=== PATIENT | female | born 1985 | race Caucasian/White ===

== ENCOUNTER 2024-12-08 05:26 | Emergency (ER) | payer BC, SELFPAY ==
[2024-12-08 05:49] VITALS: BP 133/86; PULSE 96; RESP 18; TEMP 36.4; O2SAT 98
[2024-12-08 05:56] VITALS: BP 128/82; BMI 40.9
--- OUTSIDE RECORDS SUMMARY | 2024-12-08 05:56 | XMS_ITS | Patient Health Record ---
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 Name Role Phone Julisa Samuel Primary Care Provider ALLERGIES Allergen (clinical drug ingredient) Drug/Non Drug Allergy documented on EMR Reaction Allergy Type Onset Date Status Sulfates sulfates (uncoded) hives Allergy A ctive RESULTS Component Value Reference Range Notes URINALYSIS Reviewed date:05/07/2024 12:46:29 PM Interpretation: Performing Lab: Notes/Report: Note Original Ordering Provider: JULISA SAMUEL PA-C [employer], a member of [address] [address] [employer] - Kelsey Huerta MD GLUCOSE, (UA) NEGATIVE NEGATIVE mg/dL BILIRUBIN, URINE NEGATIVE NEGATIVE KETONE, URINE NEGATIVE NEGATIVE mg/dL SPECIFIC GRAVITY, URINE 1.018 1.003-1.030 BLOOD, URINE NEGATIVE NEGATIVE PH, URINE 5.5 5.0-8.0 PROTEIN, URINE NEGATIVE <= TRACE mg/dl UROBILINOGEN, URINE 0.2 0.2-1.0 E.U./dL NITRITE, URINE NEGATIVE NEGATIVE LEUKOCYTE ESTERASE, URINE NEGATIVE NEGATIVE Note Original Ordering Provider: JULISA SAMUEL PA-C [employer], a member of [address] [address] [employer] - Kelsey Huerta MD GLYCOHEMOGLOBIN PROFILE Reviewed date:05/08/2024 01:27:17 PM Interpretation: Performing Lab: Notes/Report: GLYCATED HEMOGLOBIN A1C 5.2 <6.5 % ESTIMATED AVERAGE GLUCOSE 103 COMPREHENSIVE METABOLIC PANE L Reviewed date:05/07/2024 12:46:03 PM Interpretation: Performing Lab: Notes/Report: Note Original Orderi ng Provider: JULISA SAMUEL PA-C GLUCOSE 87 70-100 mg/dL Reference range applicable to fasting specimens only BUN 11 5-25 mg/dL CREAT 0.83 0.5-1.1 mg/dL GLOMERULAR FILTRATION RATE 92 >60 This eGFR result was calculated using the CKD-EPI 2020 Creatinine Equation SODIUM 138 135-145 mEq/L POTASSIUM 4.4 3.5-5.5 mmol/L CHLORIDE 107 96-110 mmol/L CO2 24 21-32 mmol/L ANION GAP 7 3-11 CALCIUM 9.6 8.5-10.5 mg/dL TOTAL PROTEIN 7.1 6.0-8.0 G/dL ALBUMIN 3.8 3.2-5.0 G/dL BILI,TOTAL 0.4 0.0-1.4 mg/dL SGOT 23 10-42 U/L SGPT 44 10-60 U/L ALK PHOS 63 42-121 U/L CBC WITH AUTO DIFF Reviewed date:05/07/2024 12:47:14 PM Interpretation: Performing Lab: Notes/Report: WBC 8.2 4.8-10.8 x10-3/uL RBC 4.5 3.8-4.8 x10-6/uL HEMOGLOBIN 13.3 11.5-16.0 g/dL HEMATOCRIT 39.4 35-47 % MCV 87.8 79-98 fL MCH 29.6 27-32 pg MCHC 33.8 32-37 g/dL RDW 11.9 11-15 % PLT COUNT 309 130-400 x10-3/uL MEAN PLATELET VOLUME 12.2 7-11 fL NRBC % AUTO 0.0 <1 % NEUT % 54.6 LYMPH % 33.2 MONO % 7.3 EOS % 4.3 BASO % 0.4 IMMATURE GRANULOCYTES % 0.2 NRBC # AUTO 0.00 <0.1 x10-3/uL ABSOLUTE NEUT 4.47 1.5-7.0 x10-3/uL LYMPH # 2.72 1-5.0 x10-3/uL MONO # 0.60 0.2-1.0 x10-3/uL EOS # 0.35 0-0.5 x10-3/uL BASO # 0.03 0-0.2 x10-3/uL IMMATURE GRANULOCYTES # 0.02 0-0.03 x10-3/uL LIPID PROFILE Reviewed date:05/07/2024 12:48:10 PM Interpretation: Performing Lab: Notes/Report: CHOLESTEROL 179 0-200 mg/dL TRIGLYCERIDES 172 0-150 mg/dL TSH Reviewed date:05/07/2024 12:45:25 PM Interpretation: Performing Lab: Notes/Report: TSH 2.24 0.40-4.00 uIU/ml INSULIN LEVEL Reviewed date:05/07/2024 12:45:34 PM Interpretation: Performing Lab: Notes/Report: INSULIN LEVEL 23 3-25 mU/L Insulin reference range based on fasting status. Insulin values vary in non-fasting individuals. VIT D 1, 25-DIHYDROXY Reviewed date:05/13/2024 03:27:33 PM Interpretation: Performing Lab: Notes/Report: Note Original Ordering Provider: JULISA SAMUEL PA-C [employer] [address] No[employer] T[employer] - Kelsey Huerta MD VIT D,1,25-DIHYDROXY 58 20 - 79 pg/mL Vitamin D 1, 25 dihydroxy levels should be primarily used to assess Vitamin D status in patients with renal disease and hypercalcemia. Vitamin D 1,25-dihydroxy levels are generally less than 5 pg/mL in end stage renal disease patients. The preferred initial test for assessing Vitamin D status in the general population is Vitamin D 25-hydroxy (VITD). Test performed at [facility], [address] [place], [place] [id number] Amanda Caraballo MD, PhD - [employer] Note Original Ordering Provider: JULIAS SAMUEL PA-C [employer] [address] [employer] - Kelsey Huerta MD REASON FOR REFERRAL No Information MEDICATIONS Medication SIG (Take, Route, Fr equency, Duration) Notes Start Date End Date Status Wegovy 0.25 MG/0.5ML inject 0.25 Subcuta neous once a week for 30 days 05/16/2024 Active Zepbound 2.5 MG/0.5ML 0.5 mL Subcutaneou s once weekly for 30 days 05/13/2024 Active SOCIAL HISTORY Tobacco Use: Social History Observation Description Date Details (start date - stop date) Never Smoker NA - NA Sex Assigned At : Social History Observation Description Sex Assigned At Unknown Tobacco Use/Smoking Question Answer Notes Are you a nonsmoker Alcohol Screen (Audit-C) Question Answer Notes Did you have a drink contain ing alcohol in the past year? Yes How often did you have a dri nk containing alcohol in the past year? Monthly or less (1 point) Points 1 Interpretation Negative PROBLEMS Problem Type ICD Code Onset Dates Problem Status W/U Status Risk SNOMED Code Notes Problem Vitamin D deficiency, unspecified (E55.9) Active confirmed 62014859 Problem Other obesity due to excess calories (E66.09) Active confirmed 235089582 Problem Anxiety (F41.9) Active confirmed 797055 02 Problem Seasonal allergies (J30.2) Active confirmed 375839727 Problem Body mass index [BMI] 39.0-39.9, adult (Z68.39) Active confirmed 135706900 VITAL SIGNS Heart Rate 84 /min 05/13/2024 Blood pressure diastolic 80 mm Hg 05/13/2024 Oximetry 97 % 05/13/2024 Height 61 in 05/13/2024 Blood pressure systolic 128 mm Hg 05/13/2024 Weight 205 lbs 05/13/2024 BMI 38.73 kg/m2 05/13/2024 Encounters Encounter Location Date Provider Diagnosis [address] [address] 06/18/2024 Julisa Svrcek [address] 07/22/2024 Julisa Svrcek [address] 04/29/2024 Julisa Svrcek Snoring R06.83 ; Oth er obesity due to excess calories E66.09 ; Body mass index [BMI] 39.0-39.9, adult Z68.39 ; Anxiety F41.9 and Seasonal allergies J30.[address] 05/13/2024 Julisa Svrcek Other obesity due to excess calories E66.09 ; Body mass index [BMI] 39.0-39.9, adult Z68.39 and Encounter for weight loss counseling Z71.3 [address] [address] 05/13/2024 Julisa Svrcek [address] [address] 05/15/2024 Julisa Svrcek [address] [facility] [address] [place] [address] 05/22/2024 Julisa Svrcek [address] [address] 05/22/2024 Julisa Svrcek ASSESSMENTS Encounter Date Diagnosis Assessment Notes Treatment Notes Treatment Clinical Notes Section Notes 04/29/2024 Other obesity due to excess calories (ICD-10 - E66.09) #Snoring. Reports mild snoring. Denies witnessed apneic events. STOP-BANG questionnaire score is a 4 out of 8. Will refer to sleep medicine for sleep study to rule out obstructive sleep apnea. #Obesity. She will be establishing for weight management as well. Will get comprehensive labs. She has noticed increased weight gain over the past 5 to 7 years after she had her son. Discussed importance of healthy diet and regular exercise. Schedule annual wellness in 2-3 months. #Anxiety. Has been well-controlled without medication. Not currently seeing a therapist. #Seasonal allergies. Intermittent symptoms. Case discussed with collaborating physician Sonny Gaston who reviewed the assessment and plan. Chart, medications, labs, vital signs reviewed. Dictation was accomplished with the use of [employer] voice recognition software, prone to medical misidentifications and grammatical errors. This is unintentional and the practitioner does try to identify and correct these, but some could still be present. Please do not hesitate to contact practitioner for clarification. All questions answered to patients satisfaction. Patient verbalized understanding of diagnosis and treatments explained. To call sooner prior to next visit it any questions/concerns arise. 04/29/2024 Snoring (ICD-10 - R06.83) #Snoring. Reports mild snoring. Denies witnessed apneic events. STOP-BANG questionnaire score is a 4 out of 8. Will refer to sleep medicine for sleep study to rule out obstructive sleep apnea. #Obesity. She will be establishing for weight management as well. Will get comprehensive labs. She has noticed increased weight gain over the past 5 to 7 years after she had her son. Discussed importance of healthy diet and regular exercise. Schedule annual wellness in 2-3 months. #Anxiety. Has been well-controlled without medication. Not currently seeing a therapist. #Seasonal allergies. Intermittent symptoms. Case discussed with collaborating physician Sonny Gaston who reviewed the assessment and plan. Chart, medications, labs, vital signs reviewed. Dictation was accomplished with the use of [employer] voice recognition software, prone to medical misidentifications and grammatical errors. This is unintentional and the practitioner does try to identify and correct these, but some could still be present. Please do not hesitate to contact practitioner for clarification. All questions answered to patients satisfaction. Patient verbalized understanding of diagnosis and treatments explained. To call sooner prior to next visit it any questions/concerns arise. 05/13/2024 Other obesity due to excess calories (ICD-10 - E66.09) #Obesity. 205.5 pounds, BMI 39.3. She recently established with us for primary care and was seen today for weight management consult. Reviewed Seca scale in detail with patient. Discussed medical weight loss options in detail including phentermine, Contrave, Wegovy, compounded semaglutide, Zepbound, compounded tirzepatide, Topamax and metformin. She is most interested in Zepbound. Unclear if this will be covered by her insurance. Will submit to the pharmacy and discussed PA can take up to 4 weeks. We did discuss the option of compounded semaglutide or compounded tirzepatide in the office as well. If Zepbound is not covered she would be open to Wegovy or Contrave if no GLP-1 medications are covered. Reviewed proper use and risk benefits adverse effects of all medications. Demonstrated pen autoinjectors here in the office. Discussed calorie goal of 1400 hazel a day and protein goal of 80 g of protein daily as well as 80 ounces of water daily. Encouraged regular exercise and resistance training. Discussed importance of B complex vitamin and probiotics as well. Will follow-up in 4 weeks sooner with any concerns. The patient will continue exercise regimen with an emphasis on improving/increasing steps to at least 6,000-10,000 steps per day. Increasing cardio and strength training exercises as tolerated to improve weight loss and work on building muscle mass. Patient is committed to smarter eating with calorie counting and mindful eating. Limiting processed foods and carbohydrates and increasing leafy greens and lean proteins as well as fruits into their diet. Patient was counseled on the importance of eating local, organic food when possible. Patient has been counseled regarding effects of GLP/GIP-1 agonists and other FDA approved weight loss medications with regards to a multifactorial approach of weight loss as mentioned above and that the medication alone will not be sufficient to meet patients goals. We discussed holistic medication approach with emphasis on lifestyle modification. Discussed obesity as it increases risk of diabetes, cardiovascular disease, and/or organ damage. We spent a lot of time discussing the relationship between food, exercise, sleep, mental health, and obesity. We discussed the importance of having SECAs done every visit and having accountability done during these visits. That the scale is done to monitor not only weight loss but the body composition during medication management and healthy lifestyle changes. We discussed that if the patient is unable at times to financially afford this scale that we would rather waive the fee and have the scale done than have the patient not have the scale obtained. Will follow up with the patient in 4 weeks time to monitor weight loss. Total time was 45 min, greater than 50 % of time was spent on care coordination 05/13/2024 Body mass index [BMI] 39.0-39.9, adult (ICD-10 - Z68.39) #Obesity. 205.5 pounds, BMI 39.3. She recently established with us for primary care and was seen today for weight management consult. Reviewed Seca scale in detail with patient. Discussed medical weight loss options in detail including phentermine, Contrave, Wegovy, compounded semaglutide, Zepbound, compounded tirzepatide, Topamax and metformin. She is most interested in Zepbound. Unclear if this will be covered by her insurance. Will submit to the pharmacy and discussed PA can take up to 4 weeks. We did discuss the option of compounded semaglutide or compounded tirzepatide in the office as well. If Zepbound is not covered she would be open to Wegovy or Contrave if no GLP-1 medications are covered. Reviewed proper use and risk benefits adverse effects of all medications. Demonstrated pen autoinjectors here in the office. Discussed calorie goal of 1400 hazel a day and protein goal of 80 g of protein daily as well as 80 ounces of water daily. Encouraged regular exercise and resistance training. Discussed importance of B complex vitamin and probiotics as well. Will follow-up in 4 weeks sooner with any concerns. The patient will continue exercise regimen with an emphasis on improving/increasing steps to at least 6,000-10,000 steps per day. Increasing cardio and strength training exercises as tolerated to improve weight loss and work on building muscle mass. Patient is committed to smarter eating with calorie counting and mindful eating. Limiting processed foods and carbohydrates and increasing leafy greens and lean proteins as well as fruits into their diet. Patient was counseled on the importance of eating local, organic food when possible. Patient has been counseled regarding effects of GLP/GIP-1 agonists and other FDA approved weight loss medications with regards to a multifactorial approach of weight loss as mentioned above and that the medication alone will not be sufficient to meet patients goals. We discussed holistic medication approach with emphasis on lifestyle modification. Discussed obesity as it increases risk of diabetes, cardiovascular disease, and/or organ damage. We spent a lot of time discussing the relationship between food, exercise, sleep, mental health, and obesity. We discussed the importance of having SECAs done every visit and having accountability done during these visits. That the scale is done to monitor not only weight loss but the body composition during medication management and healthy lifestyle changes. We discussed that if the patient is unable at times to financially afford this scale that we would rather waive the fee and have the scale done than have the patient not have the scale obtained. Will follow up with the patient in 4 weeks time to monitor weight loss. Total time was 45 min, greater than 50 % of time was spent on care coordination 05/13/2024 Encounter for weight loss counseling (ICD-10 - Z71.3) #Obesity. 205.5 pounds, BMI 39.3. She recently established with us for primary care and was seen today for weight management consult. Reviewed Seca scale in detail with patient. Discussed medical weight loss options in detail including phentermine, Contrave, Wegovy, compounded semaglutide, Zepbound, compounded tirzepatide, Topamax and metformin. She is most interested in Zepbound. Unclear if this will be covered by her insurance. Will submit to the pharmacy and discussed PA can take up to 4 weeks. We did discuss the option of compounded semaglutide or compounded tirzepatide in the office as well. If Zepbound is not covered she would be open to Wegovy or Contrave if no GLP-1 medications are covered. Reviewed proper use and risk benefits adverse effects of all medications. Demonstrated pen autoinjectors here in the office. Discussed calorie goal of 1400 hazel a day and protein goal of 80 g of protein daily as well as 80 ounces of water daily. Encouraged regular exercise and resistance training. Discussed importance of B complex vitamin and probiotics as well. Will follow-up in 4 weeks sooner with any concerns. The patient will continue exercise regimen with an emphasis on improving/increasing steps to at least 6,000-10,000 steps per day. Increasing cardio and strength training exercises as tolerated to improve weight loss and work on building muscle mass. Patient is committed to smarter eating with calorie counting and mindful eating. Limiting processed foods and carbohydrates and increasing leafy greens and lean proteins as well as fruits into their diet. Patient was counseled on the importance of eating local, organic food when possible. Patient has been counseled regarding effects of GLP/GIP-1 agonists and other FDA approved weight loss medications with regards to a multifactorial approach of weight loss as mentioned above and that the medication alone will not be sufficient to meet patients goals. We discussed holistic medication approach with emphasis on lifestyle modification. Discussed obesity as it increases risk of diabetes, cardiovascular disease, and/or organ damage. We spent a lot of time discussing the relationship between food, exercise, sleep, mental health, and obesity. We discussed the importance of having SECAs done every visit and having accountability done during these visits. That the scale is done to monitor not only weight loss but the body composition during medication management and healthy lifestyle changes. We discussed that if the patient is unable at times to financially afford this scale that we would rather waive the fee and have the scale done than have the patient not have the scale obtained. Will follow up with the patient in 4 weeks time to monitor weight loss. Total time was 45 min, greater than 50 % of time was spent on care coordination 04/29/2024 Body mass index [BMI] 39.0-39.9, adult (ICD-10 - Z68.39) #Snoring. Reports mild snoring. Denies witnessed apneic events. STOP-BANG questionnaire score is a 4 out of 8. Will refer to sleep medicine for sleep study to rule out obstructive sleep apnea. #Obesity. She will be establishing for weight management as well. Will get comprehensive labs. She has noticed increased weight gain over the past 5 to 7 years after she had her son. Discussed importance of healthy diet and regular exercise. Schedule annual wellness in 2-3 months. #Anxiety. Has been well-controlled without medication. Not currently seeing a therapist. #Seasonal allergies. Intermittent symptoms. Case discussed with collaborating physician Sonny Gaston who reviewed the assessment and plan. Chart, medications, labs, vital signs reviewed. Dictation was accomplished with the use of [employer] voice recognition software, prone to medical misidentifications and grammatical errors. This is unintentional and the practitioner does try to identify and correct these, but some could still be present. Please do not hesitate to contact practitioner for clarification. All questions answered to patients satisfaction. Patient verbalized understanding of diagnosis and treatments explained. To call sooner prior to next visit it any questions/concerns arise. 04/29/2024 Anxiety (ICD-10 - F41.9) #Snoring. Reports mild snoring. Denies witnessed apneic events. STOP-BANG questionnaire score is a 4 out of 8. Will refer to sleep medicine for sleep study to rule out obstructive sleep apnea. #Obesity. She will be establishing for weight management as well. Will get comprehensive labs. She has noticed increased weight gain over the past 5 to 7 years after she had her son. Discussed importance of healthy diet and regular exercise. Schedule annual wellness in 2-3 months. #Anxiety. Has been well-controlled without medication. Not currently seeing a therapist. #Seasonal allergies. Intermittent symptoms. Case discussed with collaborating physician Sonny Gaston who reviewed the assessment and plan. Chart, medications, labs, vital signs reviewed. Dictation was accomplished with the use of [employer] voice recognition software, prone to medical misidentifications and grammatical errors. This is unintentional and the practitioner does try to identify and correct these, but some could still be present. Please do not hesitate to contact practitioner for clarification. All questions answered to patients satisfaction. Patient verbalized understanding of diagnosis and treatments explained. To call sooner prior to next visit it any questions/concerns arise. 04/29/2024 Seasonal allergies (ICD-10 - J30.2) #Snoring. Reports mild snoring. Denies witnessed apneic events. STOP-BANG questionnaire score is a 4 out of 8. Will refer to sleep medicine for sleep study to rule out obstructive sleep apnea. #Obesity. She will be establishing for weight management as well. Will get comprehensive labs. She has noticed increased weight gain over the past 5 to 7 years after she had her son. Discussed importance of healthy diet and regular exercise. Schedule annual wellness in 2-3 months. #Anxiety. Has been well-controlled without medication. Not currently seeing a therapist. #Seasonal allergies. Intermittent symptoms. Case discussed with collaborating physician Sonny Gaston who reviewed the assessment and plan. Chart, medications, labs, vital signs reviewed. Dictation was accomplished with the use of [employer] voice recognition software, prone to medical misidentifications and grammatical errors. This is unintentional and the practitioner does try to identify and correct these, but some could still be present. Please do not hesitate to contact practitioner for clarification. All questions answered to patients satisfaction. Patient verbalized understanding of diagnosis and treatments explained. To call sooner prior to next visit it any questions/concerns arise. PLAN OF TREATMENT Pending Test Test Name Order Date CBC (COMPLETE BLOOD COUNT) WITH DIFF 10/2023 COMPREHENSIVE METABOLIC PANEL 04/29/2024 HEMOGLOBIN A1C 04/29/2024 LIPID PANEL 04/29/2024 TSH 04/29/2024 URINALYSIS, COMPLETE 04/29/2024 INSULIN 04/29/2024 VITAMIN D, 1,25 DIHYDROXY LC/MS/MS 04/29 Insurance Providers Payer Name Payer Address Payer Phone Subscriber Number Group Number Insured Name Patient Relationship to Insured Coverage Start Date Coverage End Date [facility] [address] [place] [address] [id number] Javon Bailey Self - patient is the insured MEDICAL (GENERAL) HISTORY Medical History History ICD Code weight gain/loss anxiety seasonal allergies Surgical History Surgery Date(Month/Year) section 06/04/2017
--- OUTSIDE RECORDS SUMMARY | 2024-12-08 05:56 | XMS_ITS ---
Author Organization [facility] Address [address] [place] [address] Care Team Providers Care Funeral Pre Need Consultant Name Role Phone Julisa Bradshaw Primary Care Provider [phone] Encounters Encounter Location Date Provider Diagnosis [address] [address] 07/22/2024 Julisa Bradshaw PLAN OF TREATMENT No Information Progress Notes * DOROTHEAeJramy SANDRAaDOB: [birth year] (39 yo F)Acc No.[id number]:07/22/2024 CPE Patient:??Javon HERRERA Provider:??Julisa Bradshaw PA-C :1985?Age:39 Y?Sex:Fe male Date:07/22/2024 [facility] [facility] Subjective: * Chief Complaints: * ? * Medical History:?? Objective: Assessment: Plan: * Treatment: * Images: Billing Information: * Visit Code:?? * Procedure Codes:?? Care Plan Details* * Sign off status: Pending * Provider:??Julisa Bradshaw PA-C Date:??06/28
--- OUTSIDE RECORDS SUMMARY | 2024-12-08 05:56 | XMS_ITS | Clinical Summary ---
Author Organization [facility] Address [address] [place] [address] Care Team Providers Care Electrocardiograph Repairer Name Role Phone Jojo Galvez MD Primary Care Provider Unav ailable Allergies Active Allergy Reactions Criticality Noted Date Comments Amoxicillin Other (See Comments) High 05/06/2021 angioedema Sulfa Antibiotics Hives Medium 05/06/2021 5 years ago Medications Medication Sig Dispensed Refills Start Date End Date Status MV & Min w/FA-DHA ( Adult Gummy/DHA/FA) 0.4-25 MG CHEW Chew by mouth daily. 0 Active ciclopirox (LOPROX) 0.77 % creamIndications:Tin ea pedis of both feet Apply topically 2 (two) times a day. Gently massage into affected areas and surrounding skin 15 g 1 06/16/2022 Active ciclopirox (PENLAC) 8 % solutionIndications: Fungal toenail infection Apply topically every night at bedtime. Apply over nail and surrounding skin. Apply daily over previous coat. After seven (7) days, may remove with alcohol and continue cycle. 6.6 mL 2 06/16/2022 Active Active Problems Problem Noted Date Diagnosed Date Asthma Immunizations Name Administration Dates Next Due Covid-19 (Moderna 12+) 100mcg/0.5mL dosage 12/22 Influenza Quad (Fluarix/Fluz one/FluLaval) 0.5mL (SD-IIV4) 07/25/2023,06/16/2022,06/06/2021 Influenza Trivalent (Fluzone /Afluria) 5.0mL Multi-dose Vial 06/05/2017 Family History Medical History Relation Name Comments No Sig Med Hx Father Alzheimer's disease Maternal Grandfather Depression Maternal Grandfather Diabetes Maternal Grandfather Hypertension Maternal Grandfather Thyroid disease Maternal Grandfather Thyroid disease Maternal Grandmother Anxiety disorder Mother Depression Mother Kidney disease Paternal Grandfather Liver disease Paternal Grandfather Diabetes Paternal Grandmother Hypertension Paternal Grandmother Kidney disease Paternal Grandmother Liver disease Paternal Grandmother Anxiety disorder Sister Depression Sister Hyperlipidemia Sister Relation Name Status Comments Father Alive Maternal Grandfather Maternal Grandmother Alive Mother Alive Paternal Grandfather Paternal Grandmother Sister Alive Social History Tobacco Use Types Packs/Day Years Used Date Smoking Tobacco: Never Smokeless Tobacco: Never Tobacco Cessation:Counseling Given: Not Answered Alcohol Use Standard Drinks/Week Comments Yes 0 (1 standard drink = 0.6 oz pur e alcohol) Occasionally Sex and Gender Information Value Date Recorded Sex Assigned at Not on file Gender Identity Not on file Sexual Orientation Not on file Job Start Date Occupation Industry Not on file Not on file Not on file Last Filed Vital Signs Vital Sign Reading Time Taken Comments Blood Pressure 120/75 07/25/2023 3:36 PM EST Pulse 90 07/25/2023 3:00 PM EST Temperature 36.8 ??C (98.2 ??F) 07/25/2023 3:00 PM ES T Respiratory Rate - - Oxygen Saturation 98% 07/25/2023 3:00 PM EST Inhaled Oxygen Concentration - - Weight 93.4 kg (206 lb) 07/25/2023 3:00 PM EST Height 152.4 cm (5') 07/25/2023 3:00 PM EST Body Mass Index 40.23 07/25/2023 3:00 PM EST Plan of Treatment Health Maintenance Due Date Last Done Comments Hepatitis B Vaccines (1 of 3 - 3-dose series) 1986 Hepatitis C Screening 1985 DTap / Tdap / Td (1 - Tdap) 2005 Depression Screening 06/16/2023 06/16/2022, 05/06/20 Cervical Cancer Screening (Pap Smear) 02/24/2024 02/23/2021 Influenza Vaccine (#1) 2024 , 06/16/2022, 06/06/2021, Additional history exists BMI Counseling 07/25/2024 07/25/2023, 05/28, 10/20/2021, Additional history exists Preventative Health Evaluation 07/25/2024 07/25/2023, 06/16/2022, 06/16/2022, Additional history exists COVID-19 Vaccine Discontinued 12/22/2020 Pneumococcal Vaccine Aged Out No long er eligible based on patient's age to complete this topic RSV Ped < 20 months Aged Out No longe r eligible based on patient's age to complete this topic Care Teams Electrocardiograph Repairer Relationship Specialty Start Date End Date Jojo Galvez MD PCP - General Internal Medicine 06/16/22
--- OUTSIDE RECORDS SUMMARY | 2024-12-08 05:56 | XMS_ITS ---
Author Organization [facility] Address [address] [place] [address] Care Team Providers Care Zipper Repairer Name Role Phone Julisa Bradshaw Primary Care Provider Encounters Encounter Location Date Provider Diagnosis [phone] [address] 06/18/2024 Julisa Bradshaw PLAN OF TREATMENT No Information Progress Notes * Jeramy HERRERAaDOB: [birth year] (39 yo F)Acc No.[id number]:06/18/2024 Patient:??Javon HERRERA Provider:??Julisa Bradshaw PA-C :1985?Age:39 Y?Sex:Fe male Date:06/18/2024 Address:[address] [facility] Subjective: * Chief Complaints: * ? * Medical History:?? Objective: Assessment: Plan: * Treatment: * Images: Billing Information: * Visit Code:?? * Procedure Codes:?? * Sign off status: Pending * Provider:??Julisa Bradshaw PA-C Date:??05/28
--- OUTSIDE RECORDS SUMMARY | 2024-12-08 05:56 | XMS_ITS ---
Author Name [facility] Organization Unknown History of Medication Use Medication Directions Dispensed Refills Start Date End Date Stat us doxycycline monohydrate 100 mg capsule TAKE 1 CAPSULE BY MOUTH EVERY 12 HOURS WITH A GLASS OF WATER 06/25/2024 completed Ozempic 0.25 mg or 0.5 mg (2 mg/3 mL) subcutaneous pen injector INJECT 0.25 MG EVERY WEEK BY SUBCUTANEOUS ROUTE. active Ozempic 1 mg/dose (4 mg/3 mL) subcutaneous pen injector Inject 1 mg every week by subcutaneous route as directed. 09/29/2024 active Ozempic 1 mg/dose (4 mg/3 mL) subcutaneous pen injector active Allergies Allergen Reaction Severity Comment Documented Date Source Statu s AMOXICILLIN [facility] Problems Problem Status Onset Date Problem Type Date of Resoluti on Source Non-alcoholic fatty liver active 2024-06-25 ProblemAct [facility] Endocrine/metabolic screening active 2024-05-01 ProblemAct [facility] Obesity active 2024-05-19 ProblemAct [facility] Abnormal weight gain active 2024-06-26 ProblemAct [facility] Encounters Encounter Type Encounter Reason Primary Diagnosis Location Date Ambulatory [facility] 06/28/2024 Care Team Organization Name Specialty Phone Email Start Date End Da te [facility] 11/30/2024 [facility] of the [facility] Intern ([facility]) 07/11/2024
--- OUTSIDE RECORDS SUMMARY | 2024-12-08 05:56 | XMS_ITS | Data Portability ---
Author Organization [employer]. - [employer], [employer] Address [address] [place] [phone] Assessment Encounter Date Assessment Date Assessment LastModified by Organization Details LastModified Time 06/25/2024 06/25/2024 39 y/o F C2 BMI 38.9 w NAFLD, Hypertriglyceridem ia, presents for weight management. REC: Inject Ozempic 0.25mg once weekly for 4 weeks, then increase to 0.5mg once weekly and stay on 0.5mg Class I/II/III Obesity:??medicall y complex with the following comorbidities (@diagnosis if HTN, HLD, CAD, prediabetes, DM, NAFLD/CRAIG, AYSHA, CVA) --Reviewed basic physiology of weight regulation --Low GI diet, protein breakfast, food order --Exercise as tolerated ? CV and resistance training --Utilize Evolve?? --RD referral --Support groups --Track weight weekly online --Shift calories to earlier in the day --Reviewed medications associated with weight gain, counseled on alternatives to be discussed with prescribing provide --AOM selection ? discussed dosing and common side effects --Future: increasing dose of AOM/alternative??A OMs --previously tried??AOMs??and reason for discontinuation Common Associated Diagnoses: Metabolic: Diabetes/Prediabet es/Metabolic Syndrome/Insulin Resistance/Hyperin sulinemia/IFG (Impaired fasting glucose)/PCOS/Hx?? of Gestational DM --Reviewed physiology of insulin resistance and weight --Discussed importance of a low??glycemic?? t --Encourage the incorporation of resistance training to improve insulin resistance --Review medications associated with weight gain, counseled on alternatives to be discussed with prescribing provider. CV: Hyperlipidemia/Dys lipidemia/Elevated CRP/HTN/CAD/AFib/S sameer family??hx??of early CAD> --Monitor lipids with weight loss and dietary/lifestyle modification --Monitor BP with weight loss and dietary/lifestyle modification --Educate patient on orthostatic hypotension ? might need to reduce/stop medications with significant weight loss GI: GERD/Elevated??LFT s/NAFLD --Reviewed common food triggers, keeping a symptom journal, elevation of the head of the bed, stop eating a few hours before bedtime Constipation --Encouraged hydration, increased fiber in diet (increase fruits/vegetables, ??pauly??seeds, flax seeds, GG crackers) --Encouraged physical activity including walking --Consider Citrucel fiber, Miralax or Colace AYSHA - @STOP-BANG score --Reviewed physiology of AYSHA and health risks associated with untreated sleep apnea Psych: Anxiety/Depression /Eating Disorder (Anorexia, Bulimia, Binge Eating)/Night Eating Syndrome -- Review medications associated with weight gain, counseled on alternatives to be discussed with prescribing provider. Hypothyroidism --Reviewed medications Migraine Headaches?? --Review medications associated with weight gain, counseled on alternatives to be discussed with prescribing provider. Musculoskeletal: Osteoarthritis/Chr onic Pain ----Review medications associated with weight gain, counseled on alternatives to be discussed with prescribing provider. --Exercise as tolerated Total time spent on the date of the encounter = 60 minutes, which includes visit preparation time, time reviewing and independently interpreting results, [id number] time with the patient, counseling/educati ng patient/family members/caregivers , ordering medications/tests/ procedures, care coordination, documenting clinical information in the electronic medical record, following up on referrals/results and communicating with related healthcare professionals as needed. Follow up: Appt??w/ : fernando Appt??w/ RD: [email or web address] Not available 06/25/2024 18:08:31 06/26/2024 06/26/2024 Assessment: Patient with abnormal weight gain presents for nutritional counseling and weight management ??? Nutrition Intervention: Patient was recommended a heart healthy, low glycemic eating style focusing on minimally processed foods with adequate protein, fiber, and nutrient intake. Resources provided: Evolve Course 200: Getting Started, Evolve Course 201: Healthy Eating for Weight Loss Education and Counseling: ??? Protein: Discussed including adequate protein throughout the day to support general needs and muscle mass preservation/build ing. A general rule of thumb can be 20-25g, 3x/day. Protein sources include: meat, fish, poultry, eggs, qatari yogurt, cottage cheese, tofu, tempeh, seitan, and protein supplements. Protein Supplements: Discussed protein shakes and bars that could be used to supplement protein intake from food as a matter of convenience and achieveing protein requirements. MyPlate Meal Composition: Aim for meals to include - 1/2 the plate with non-starchy vegetables, 1/4 plate of lean protein, and 1/4 plate of fiber-rich carbohydrates (whole grains). Reviewed GLP1 nutrition recommendations covering appetite, meal structure, prioritizing protein and fiber, and side effect management. Meal Timing: Discussed the importance of calorie distribution throughout the day as it relates to the optimizing nutrition and meeting our overall nutrition needs. ??? Meal Prep ??? Strength training: Discussed the importance of strength training as a means to preserve muscle mass during weight loss as well as provide strength and balance, in addition to general benefits of exercise. Recommendations per guidelines are 2x per week. Activities include: lifting weights, resistance training, isometrics, yoga, pilates, boxing, martial arts. Plan/Goals: 1. Aim for breakfast every day. Armenian yogurt and/or eggs could be a great option with toast and or fruit. 2. Consider having a salad with a protein for lunch. 3. Aim for at least 80g of protein per day. 4. Aim for balanced meals and snacks. Ideally each meal can include a significant source of protein (20g or more) and a solid source of fiber (fruits, veggies, whole grains) 5. Try to eat more consistently throughout the day. Anywhere from 3-5 hours between meals/snacks is recommended Total Time Spent on the date of the encounter: 60 minutes which includes visit preparation time, time reviewing and independently interpreting results, [id number] time with the patient, counseling/educati ng the patient/family members/caregivers ,, care coordination, documenting clinical information in the electronic medical record, following up on referrals/results and communicating with related healthcare professionals as needed. ??? [email or web address] Not available 06/26/2024 15:17:47 09/26/2024 09/26/2024 39 y/o F C2 BMI 38.9 w NAFLD, Hypertriglyceridem ia, presents for weight management. REC: Inject Ozempic 1mg once weekly Class I/II/III Obesity:??medicall y complex with the following comorbidities (@diagnosis if HTN, HLD, CAD, prediabetes, DM, NAFLD/CRAIG, AYSHA, CVA) --Reviewed basic physiology of weight regulation --Low GI diet, protein breakfast, food order --Exercise as tolerated ? CV and resistance training --Utilize Evolve?? --RD referral --Support groups --Track weight weekly online --Shift calories to earlier in the day --Reviewed medications associated with weight gain, counseled on alternatives to be discussed with prescribing provide --AOM selection ? discussed dosing and common side effects --Future: increasing dose of AOM/alternative??A OMs --previously tried??AOMs??and reason for discontinuation Common Associated Diagnoses: Metabolic: Diabetes/Prediabet es/Metabolic Syndrome/Insulin Resistance/Hyperin sulinemia/IFG (Impaired fasting glucose)/PCOS/Hx?? of Gestational DM --Reviewed physiology of insulin resistance and weight --Discussed importance of a low??glycemic?? t --Encourage the incorporation of resistance training to improve insulin resistance --Review medications associated with weight gain, counseled on alternatives to be discussed with prescribing provider. CV: Hyperlipidemia/Dys lipidemia/Elevated CRP/HTN/CAD/AFib/S sameer family??hx??of early CAD> --Monitor lipids with weight loss and dietary/lifestyle modification --Monitor BP with weight loss and dietary/lifestyle modification --Educate patient on orthostatic hypotension ? might need to reduce/stop medications with significant weight loss GI: GERD/Elevated??LFT s/NAFLD --Reviewed common food triggers, keeping a symptom journal, elevation of the head of the bed, stop eating a few hours before bedtime Constipation --Encouraged hydration, increased fiber in diet (increase fruits/vegetables, ??pauly??seeds, flax seeds, GG crackers) --Encouraged physical activity including walking --Consider Citrucel fiber, Miralax or Colace AYSHA - @STOP-BANG score --Reviewed physiology of AYSHA and health risks associated with untreated sleep apnea Psych: Anxiety/Depression /Eating Disorder (Anorexia, Bulimia, Binge Eating)/Night Eating Syndrome -- Review medications associated with weight gain, counseled on alternatives to be discussed with prescribing provider. Hypothyroidism --Reviewed medications Migraine Headaches?? --Review medications associated with weight gain, counseled on alternatives to be discussed with prescribing provider. Musculoskeletal: Osteoarthritis/Chr onic Pain ----Review medications associated with weight gain, counseled on alternatives to be discussed with prescribing provider. --Exercise as tolerated Total time spent on the date of the encounter = 60 minutes, which includes visit preparation time, time reviewing and independently interpreting results, [id number] time with the patient, counseling/educati ng patient/family members/caregivers , ordering medications/tests/ procedures, care coordination, documenting clinical information in the electronic medical record, following up on referrals/results and communicating with related healthcare professionals as needed. Follow up: Appt??w/ : fernando Appt??w/ RD: 1m [email or web address] Not available 09/29/2024 14:10:49 Plan of Treatment Reminders Order Date Submit Date Provider Last Modified By Organization Details Last Modified Time Details Appointments FOLLOW-UP (FV)-65 2024 04:30P Ravinder Bird MD Not available Not available Not available Lab None recorded. Referral None recorded. Procedures None recorded. Surgeries None recorded. Imaging None recorded. Medication Orders Ozempic 1 mg/dose (4 mg/3 mL) subcutane ous pen injector 2024 025 [facility]/Pharmacy #[id number], [address] [place], [address], 09/29/2024 14:11:02 Ozempic 0.25 mg or 0.5 mg (2 mg/3 mL) subcutane ous pen injector 2023 024 [facility]/Pharmacy #[id number], [address] [place], [address], 06/28/2024 21:22:57 Patient TargetsNo targets recorded. Patient Instructions Encounter Date Encounter Id Patient Instructions Last Modified By Organization Details Last Modified Time 06/25/2024 [id number] Medication:?? -Starting the following medication- Inject Ozempic 0.25mg once weekly for 4 weeks, then increase to 0.5mg once weekly and stay on 0.5mg -Please take medication as discussed at your visit. Please also watch pharmaceutical video on how to inject. -Please report any side effects/issues -Please reach out if you have any questions/concerns? ? Diet:??-RD referral -Low GI diet-Limit highly processed/sugary foods/improve quality of foods (whole foods) -Shift calories to earlier in the day -Protein breakfast -Food order -[facility]??[employer] dietary related learning courses and articles?? Exercise:?? -Exercise as tolerated -PT referral if significant osteoarthritis, balance issues/high fall risk, pain/deconditioning /weakness -Cardiovascular -Resistance training -[facility]??[employer] exercise related learning courses and articles?? Sleep Hygiene:?? -Setting a goal for at least 7 to 8 hours of sleep time per day. -Avoid engaging in any activity that requires sustained mental alertness while in bed. -Maintaining a regular bedtime and wake-up time -Avoid excessive naps during the daytime -Minimizing environmental noise, bright lights (phones/TV/electron ic devices), and extremes temperatures -Avoid alcohol, caffeinated beverages, and nicotine products for at least 6 hours prior to bedtime. -Avoid strenuous exercise and large meals for at least 4 hours prior to bedtime.?? Follow up: -Weigh yourself at least once weekly and log in??[facility]??Pa charla Marie -Check blood pressure and heart rate and log in??[facility]??Pa bobnt Marie before your next provider visit in 3 month [email or web address] Not available 06/25/2024 18:03:36 06/26/2024 [id number] Ge Javon, It was great meeting with you today! I really appreciate your time and receptiveness during our conversation. I'm looking forward to hearing how things go. Here is a summary of our appointment: Education and Counseling: ??? Protein: Discussed including adequate protein throughout the day to support general needs and muscle mass preservation/buildi ng. A general rule of thumb can be 20-25g, 3x/day. Protein sources include: meat, fish, poultry, eggs, qatari yogurt, cottage cheese, tofu, tempeh, seitan, and protein supplements. Protein Supplements: Discussed protein shakes and bars that could be used to supplement protein intake from food as a matter of convenience and achieveing protein requirements. MyPlate Meal Composition: Aim for meals to include - 1/2 the plate with non-starchy vegetables, 1/4 plate of lean protein, and 1/4 plate of fiber-rich carbohydrates (whole grains). Reviewed GLP1 nutrition recommendations covering appetite, meal structure, prioritizing protein and fiber, and side effect management. Meal Timing: Discussed the importance of calorie distribution throughout the day as it relates to the optimizing nutrition and meeting our overall nutrition needs. ??? Meal Prep ??? Strength training: Discussed the importance of strength training as a means to preserve muscle mass during weight loss as well as provide strength and balance, in addition to general benefits of exercise. Recommendations per guidelines are 2x per week. Activities include: lifting weights, resistance training, isometrics, yoga, pilates, boxing, martial arts. Plan/Goals: 1. Aim for breakfast every day. Armenian yogurt and/or eggs could be a great option with toast and or fruit. 2. Consider having a salad with a protein for lunch. 3. Aim for at least 80g of protein per day. 4. Aim for balanced meals and snacks. Ideally each meal can include a significant source of protein (20g or more) and a solid source of fiber (fruits, veggies, whole grains) 5. Try to eat more consistently throughout the day. Anywhere from 3-5 hours between meals/snacks is recommended If you have any questions, please don't hesitate to send me a message via your [employer]. I hope you have a great rest of your week! Jacques Craven RD/LUIS FN [email or web address] Not available 06/26/2024 10:44:23 09/26/2024 [id number] Medication:??Inj ect Ozempic 1mg once weekly -Please take medication as discussed at your visit. -Please report any side effects/issues -Please reach out if you have any questions/concerns? ? Diet:??-RD referral -Low GI diet-Limit highly processed/sugary foods/improve quality of foods (whole foods) -Shift calories to earlier in the day -Protein breakfast -Food order -[facility]??[employer] dietary related learning courses and articles?? Exercise:?? -Exercise as tolerated -PT referral if significant osteoarthritis, balance issues/high fall risk, pain/deconditioning /weakness -Cardiovascular -Resistance training -[facility]??[employer] exercise related learning courses and articles?? Sleep Hygiene:?? -Setting a goal for at least 7 to 8 hours of sleep time per day. -Avoid engaging in any activity that requires sustained mental alertness while in bed. -Maintaining a regular bedtime and wake-up time -Avoid excessive naps during the daytime -Minimizing environmental noise, bright lights (phones/TV/electron ic devices), and extremes temperatures -Avoid alcohol, caffeinated beverages, and nicotine products for at least 6 hours prior to bedtime. -Avoid strenuous exercise and large meals for at least 4 hours prior to bedtime.?? Follow up: -Weigh yourself at least once weekly and log in??[facility]??Pa tient Marie -Check blood pressure and heart rate and log in??[facility]??Pa tient Marie before your next provider visit in 3 month [email or web address] Not available 09/29/2024 14:11:09 Reason for Referral None Reported. Problems Name Problem SNOMED Code Status Onset Date Resolution Date Notes Provider Name and Address Organization Details Recorded Time Endocrine/m etabolic screening Active 024 Namita Allen [facility] [place] - [employer]. - [place] [facility] 4 18:45:45 Obesity 186306324 Active 024 Crescencio Valdez [facility]. 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 - [facility] 4 18:08:53 Abnormal weight gain 539274820 Active 024 KAYLIE SORTO RDN [address] [facility],[address], [place], [address], [facility]. - [facility] 4 10:44:31 Problem Notes None recorded. Medical Equipment None Reported. Allergies Allergen ID Allergen Name Allergen Category Reaction Reaction Severity Criticality Documentation Date Start Date Code Code System Note Provider Name and Address Organization Details Recorded Time 7481 amoxicill in medicatio n Not available Not available Not available 06/24/2024 723 RxNorm Mingo Deluca [facility]. - [facility] 4 10:15:45 Medications Name Sig Start Date Stop Date Status Note LastModified by Organization Details LastModified Time doxycycline monohydrate 100 mg capsule TAKE 1 CAPSULE BY MOUTH EVERY 12 HOURS WITH A GLASS OF WATER 06/25 completed Not Available Not Available Not Available Ozempic 1 mg/dose (4 mg/3 mL) subcutaneou s pen injector INJECT 1 MG SUBCUTANE OUSLY WEEKLY DIRECTED 2024 active Not Available Not Available Not Avai lable Ozempic 0.25 mg or 0.5 mg (2 mg/3 mL) subcutaneou s pen injector INJECT 0.25 MG EVERY WEEK BY SUBCUTANE OUS ROUTE. active Not Available Not Available No t Available Vitals Date Recorded Heart rate Body height Systolic blood pressure Diastolic blood pressure Provider Name and Address Organization Details Last Updated DateTime 06/25/2024 71 /min 154.94 cm 128 mm[Hg] 84 mm[Hg] Not Available [facility] [employer] 06/25/2024 17:43:44 Date Recorded Body height Body mass index (BMI) Body weight Provider Name and Address Organization Details Last Updated DateTime 06/25/2024 154.94 cm 38.5 kg/m2 07615.41 g Telly Bird MD [address] [facility] [facility], [place], [address], [facility]. - [facility] 06/25/2024 17:54:38 Date Recorded Body weight Body height Provider Name and Address Organization Details Last Updated DateTime 06/26/2024 13876.684814 g 154.94 cm Not Available [facility] [employer] 06/26/2024 07:08:53 Date Recorded Body height Body mass index (BMI) Body weight Provider Name and Address Organization Details Last Updated DateTime 06/26/2024 154.94 cm 38.3 kg/m2 21678.[address]IE SORTO RDN [address] [facility],[address] [place] [address], [place], [address], [facility]. - [facility] 06/26/2024 07:39:56 Date Recorded Body weight Body height Provider Name and Address Organization Details Last Updated DateTime 06/27/2024 18574.035319 4 g 154.94 cm Not Available [facility] [employer] 06/27/2024 19:38:41 Date Recorded Body weight Body height Body weight Body height Provider Name and Address Organization Details Last Updated DateTime 06/28/2024 47619.218 1181 g 154.94 cm 844918.03 50241 g 154.94 cm Not Available [facility] [employer] 06/28/2024 16:33:39 Date Recorded Body weight Body height Body weight Body height Body weight Body height Provider Name and Address Organization Details Last Updated DateTime 06/30/2024 438760.8 891353 g 154.94 cm 393416. 6458144 g 154.94 cm 219651. 1128527 g 154.94 cm Not Available [facility] [employer] 14:53:46 Date Recorded Body weight Body height Provider Name and Address Organization Details Last Updated DateTime 07/01/2024 41398.907935 4 g 154.94 cm Not Available [facility] [employer] 07/01/2024 06:43:52 Date Recorded Body weight Body height Body weight Body height Heart rate Body height Heart rate Body height Systolic blood pressure Diastolic blood pressure Systolic blood pressure Diastolic blood pressure Provider Name and Address Organization Details Last Updated DateTime 66495.8 244123 g 154.94 cm 69422.0 195592 g 154.94 cm 84 /min 154.94 cm 86 /min 154.94 cm 129 mm[Hg] 91 mm[Hg] 112 mm[Hg] 74 mm[Hg] Not Available [facility] - 4 08:04:05 Date Recorded Body weight Body height Provider Name and Address Organization Details Last Updated DateTime 07/03/2024 96906.844327 1 g 154.94 cm Not Available [facility] - 07/08/2024 23:26:37 Date Recorded Body weight Body height Body weight Body height Body weight Body height Body weight Body height Provider Name and Address Organization Details Last Updated DateTime 4 39464.9 956818 g 154.94 cm 034791. 1916089 g 154.94 cm 44666.1 260015 g 154.94 cm 78147.2 777034 g 154.94 cm Not Available [facility] - 4 05:15:40 Date Recorded Body weight Body height Body weight Body height Body weight Body height Body weight Body height Provider Name and Address Organization Details Last Updated DateTime 4 354473. 2359341 g 154.94 cm 778856. 5679557 g 154.94 cm 216269. 4365236 g 154.94 cm 597330. 1571925 g 154.94 cm Not Available [employer] - 4 02:24:04 Date Recorded Body weight Body height Body weight Body height Provider Name and Address Organization Details Last Updated DateTime 07/09/2024 55851.604 4834 g 154.94 cm 702795.48 59590 g 154.94 cm Not Available [employer] - 07/09/2024 05:25:12 Date Recorded Body weight Body height Body weight Body height Provider Name and Address Organization Details Last Updated DateTime 07/11/2024 541028.70 16774 g 154.94 cm 846163.31 60329 g 154.94 cm Not Available [facility] [employer] 07/11/2024 18:38:40 Date Recorded Body weight Body height Heart rate Body height Systolic blood pressure Diastolic blood pressure Provider Name and Address Organization Details Last Updated DateTime 4 83543.1 720444 g 154.94 cm 96 /min 154.94 cm 121 mm[Hg] 93 mm[Hg] Not Available [facility] [employer] 14:58:37 Date Recorded Body weight Body height Body weight Body height Provider Name and Address Organization Details Last Updated DateTime 07/13/2024 58768.190 9898 g 154.94 cm 737418.28 30069 g 154.94 cm Not Available [facility] [employer] 07/13/2024 12:08:42 Date Recorded Body weight Body height Body weight Body height Provider Name and Address Organization Details Last Updated DateTime 07/14/2024 287023.40 87088 g 154.94 cm 509863.28 01373 g 154.94 cm Not Available [facility] [employer] 07/14/2024 17:48:43 Date Recorded Body weight Body height Body weight Body height Body weight Body height Provider Name and Address Organization Details Last Updated DateTime 07/15/2024 50912.82 62093 g 154.94 cm 49919.9 725704 g 154.94 cm 101376. 4176259 g 154.94 cm Not Available [facility] [employer] 4 18:38:43 Date Recorded Body weight Body height Body weight Body height Provider Name and Address Organization Details Last Updated DateTime 07/16/2024 93441.888 1991 g 154.94 cm 000294.54 94139 g 154.94 cm Not Available [facility] [employer] 07/16/2024 16:48:44 Date Recorded Heart rate Body height Heart rate Body height Body weight Body height Systolic blood pressure Diastolic blood pressure Systolic blood pressure Diastolic blood pressure Provider Name and Address Organization Details Last Updated DateTime 4 76 /min 154.94 cm 79 /min 154.94 cm 45387.1 576322 g 154.94 cm 113 mm[Hg] 75 mm[Hg] 112 mm[Hg] 81 mm[Hg] Not Available [facility] [employer] 4 10:23:46 Date Recorded Body weight Body height Body weight Body height Body weight Body height Provider Name and Address Organization Details Last Updated DateTime 07/21/2024 53691.57 11254 g 154.94 cm 633670. 2524413 g 154.94 cm 947948. 8043008 g 154.94 cm Not Available [facility] [employer] 17:08:53 Date Recorded Body weight Body height Body weight Body height Body weight Body height Body weight Body height Provider Name and Address Organization Details Last Updated DateTime 4 21237.3 026275 g 154.94 cm 630152. 4185229 g 154.94 cm 127060. 6755423 g 154.94 cm 213438. 6514484 g 154.94 cm Not Available [facility] [employer] 4 12:28:44 Date Recorded Body weight Body height Body weight Body height Body weight Body height Provider Name and Address Organization Details Last Updated DateTime 07/23/2024 471504.2 112289 g 154.94 cm 784459. 1009338 g 154.94 cm 626603. 9420796 g 154.94 cm Not Available [facility] [employer] 4 14:08:49 Date Recorded Body weight Body height Provider Name and Address Organization Details Last Updated DateTime 07/24/2024 66059.389742 8 g 154.94 cm Not Available [facility] [employer] 07/24/2024 08:18:45 Date Recorded Body weight Body height Provider Name and Address Organization Details Last Updated DateTime 07/25/2024 314832.21145 28 g 154.94 cm Not Available [facility] 07/25/2024 18:38:47 Date Recorded Body weight Body height Provider Name and Address Organization Details Last Updated DateTime 07/26/2024 40079.921440 2 g 154.94 cm Not Available [facility] 07/26/2024 09:48:47 Date Recorded Body weight Body height Provider Name and Address Organization Details Last Updated DateTime 07/27/2024 601827.82678 62 g 154.94 cm Not Available [facility] 07/27/2024 17:53:45 Date Recorded Body weight Body height Body weight Body height Body weight Body height Body weight Body height Body weight Body height Body weight Body height Provider Name and Address Organization Details Last Updated DateTime 4 769961. 7946827 g 154.94 cm 132726. 0439553 g 154.94 cm 912339. 9458177 g 154.94 cm 914045. 6201797 g 154.94 cm 56350.3 648344 g 154.94 cm 428060. 0821569 g 154.94 cm Not Available [facility] 4 17:53:52 Date Recorded Body weight Body height Body weight Body height Body weight Body height Body weight Body height Body weight Body height Provider Name and Address Organization Details Last Updated DateTime 4 141359. 7936754 g 154.94 cm 101449. 4059035 g 154.94 cm 601724. 842047 g 154.94 cm 274752. 3642122 g 154.94 cm 953868. 7819146 g 154.94 cm Not Available [facility] [employer] 4 17:03:47 Date Recorded Body weight Body height Body weight Body height Body weight Body height Body weight Body height Provider Name and Address Organization Details Last Updated DateTime 4 60284.4 290046 g 154.94 cm 215483. 943956 g 154.94 cm 418893. 8499855 g 154.94 cm 84187.3 08227 g 154.94 cm Not Available [facility] [employer] 4 17:08:55 Date Recorded Body weight Body height Body weight Body height Body weight Body height Provider Name and Address Organization Details Last Updated DateTime 08/01/2024 85619.13 10874 g 154.94 cm 01847.8 116381 g 154.94 cm 171094. 5439583 g 154.94 cm Not Available [facility] [employer] 4 16:58:48 Date Recorded Body weight Body height Body weight Body height Body weight Body height Provider Name and Address Organization Details Last Updated DateTime 08/03/2024 88343.50 06097 g 154.94 cm 211659. 4428407 g 154.94 cm 023371. 4713557 g 154.94 cm Not Available [facility] [employer] [facility] [employer] 4 17:28:37 Date Recorded Body weight Body height Provider Name and Address Organization Details Last Updated DateTime 08/04/2024 847746.25683 01 g 154.94 cm Not Available [employer] [facility] [employer] 08/04/2024 14:43:44 Date Recorded Body weight Body height Body weight Body height Heart rate Body height Heart rate Body height Body height Heart rate Body height Heart rate Body height Heart rate Body height Heart rate Heart rate Body height Systolic blood pressure Diastolic blood pressure Systolic blood pressure Diastolic blood pressure Systolic blood pressure Diastolic blood pressure Systolic blood pressure Diastolic blood pressure Systolic blood pressure Diastolic blood pressure Systolic blood pressure Diastolic blood pressure Systolic blood pressure Diastolic blood pressure Provider Name and Address Organization Details Last Updated DateTime 4 335129. 6268964 g 154.94 cm 00854.6 859627 g 154.94 cm 87 /min 154.94 cm 87 /min 154.94 cm 154.94 cm 87 /min 154.94 cm 87 /min 154.94 cm 80 /min 154.94 cm 86 /min 87 /min 154.94 cm 123 mm[Hg] 93 mm[Hg] 123 mm[Hg] 93 mm[Hg] 122 mm[Hg] 79 mm[Hg] 122 mm[Hg] 79 mm[Hg] 125 mm[Hg] 80 mm[Hg] 152 mm[Hg] 85 mm[Hg] 123 mm[Hg] 93 mm[Hg] Not Available [facility] [employer] 4 17:08:44 Date Recorded Body weight Body height Heart rate Body height Heart rate Body height Heart rate Body height Systolic blood pressure Diastolic blood pressure Systolic blood pressure Diastolic blood pressure Systolic blood pressure Diastolic blood pressure Provider Name and Address Organization Details Last Updated DateTime 4 03636.9 925545 g 154.94 cm 87 /min 154.94 cm 91 /min 154.94 cm 99 /min 154.94 cm 133 mm[Hg] 83 mm[Hg] 122 mm[Hg] 83 mm[Hg] 105 mm[Hg] 63 mm[Hg] Not Available [facility] [employer] 4 16:28:41 Date Recorded Body weight Body height Body weight Body height Provider Name and Address Organization Details Last Updated DateTime 08/08/2024 79788.894 0627 g 154.94 cm 804156.32 61637 g 154.94 cm Not Available [facility] [employer] 08/08/2024 18:13:41 Date Recorded Body weight Body height Body weight Body height Provider Name and Address Organization Details Last Updated DateTime 08/09/2024 212805.35 97054 g 154.94 cm 053227.23 0258 g 154.94 cm Not Available [facility] [employer] 08/09/2024 18:38:43 Date Recorded Body weight Body height Body weight Body height Provider Name and Address Organization Details Last Updated DateTime 08/10/2024 78799.929 2443 g 154.94 cm 336684.07 61901 g 154.94 cm Not Available [facility] [employer] 08/10/2024 16:23:44 Date Recorded Body weight Body height Heart rate Body height Heart rate Body height Systolic blood pressure Diastolic blood pressure Systolic blood pressure Diastolic blood pressure Provider Name and Address Organization Details Last Updated DateTime 4 66935.5 17207 g 154.94 cm 84 /min 154.94 cm 83 /min 154.94 cm 125 mm[Hg] 80 mm[Hg] 126 mm[Hg] 86 mm[Hg] Not Available [employer] [facility] [employer] 4 08:55:02 Date Recorded Body weight Body height Provider Name and Address Organization Details Last Updated DateTime 08/13/2024 21206.105930 9 g 154.94 cm Not Available [facility] [employer] 08/13/2024 07:03:52 Date Recorded Body weight Body height Provider Name and Address Organization Details Last Updated DateTime 08/15/2024 164929.99917 81 g 154.94 cm Not Available [facility] [employer] 08/15/2024 13:13:20 Date Recorded Body weight Body height Body weight Body height Body weight Body height Body weight Body height Provider Name and Address Organization Details Last Updated DateTime 4 29076.3 527047 g 154.94 cm 65837.1 289987 g 154.94 cm 78603.0 613590 g 154.94 cm 660720. 0634851 g 154.94 cm Not Available [facility] [employer] 4 16:48:18 Date Recorded Body weight Body height Provider Name and Address Organization Details Last Updated DateTime 08/18/2024 263049.46883 62 g 154.94 cm Not Available [facility] [employer] 08/18/2024 12:38:18 Date Recorded Body weight Body height Heart rate Body height Heart rate Body height Systolic blood pressure Diastolic blood pressure Systolic blood pressure Diastolic blood pressure Provider Name and Address Organization Details Last Updated DateTime 4 59329.6 219306 g 154.94 cm 91 /min 154.94 cm 97 /min 154.94 cm 122 mm[Hg] 63 mm[Hg] 111 mm[Hg] 72 mm[Hg] Not Available [facility] [employer] 4 15:23:19 Date Recorded Body weight Body height Provider Name and Address Organization Details Last Updated DateTime 08/20/2024 30131.557253 1 g 154.94 cm Not Available [facility] 08/20/2024 15:08:23 Date Recorded Body weight Body height Provider Name and Address Organization Details Last Updated DateTime 08/21/2024 30792.742179 9 g 154.94 cm Not Available [facility] 08/21/2024 09:38:22 Date Recorded Body weight Body height Provider Name and Address Organization Details Last Updated DateTime 08/22/2024 147521.09917 78 g 154.94 cm Not Available [facility] 08/22/2024 12:58:20 Date Recorded Body weight Body height Body weight Body height Body weight Body height Provider Name and Address Organization Details Last Updated DateTime 08/24/2024 26696.82 38915 g 154.94 cm 59140.0 505077 g 154.94 cm 40870.5 465573 g 154.94 cm Not Available [facility] [employer] 11:58:22 Date Recorded Body weight Body height Body weight Body height Provider Name and Address Organization Details Last Updated DateTime 08/25/2024 06027.921 191 g 154.94 cm 895704.74 64208 g 154.94 cm Not Available [facility] 08/25/2024 18:48:18 Date Recorded Body weight Body height Provider Name and Address Organization Details Last Updated DateTime 08/26/2024 24388.888339 9 g 154.94 cm Not Available [facility] 08/26/2024 07:08:27 Date Recorded Body weight Body height Body weight Body height Provider Name and Address Organization Details Last Updated DateTime 08/27/2024 864129.83 18415 g 154.94 cm 324333.35 17061 g 154.94 cm Not Available [facility] 08/27/2024 18:13:19 Date Recorded Body weight Body height Provider Name and Address Organization Details Last Updated DateTime 08/28/2024 76604.791033 4 g 154.94 cm Not Available [facility] 08/28/2024 07:03:29 Date Recorded Body weight Body height Provider Name and Address Organization Details Last Updated DateTime 08/30/2024 97563.303034 3 g 154.94 cm Not Available [facility] 08/30/2024 10:33:20 Date Recorded Body weight Body height Body weight Body height Body weight Body height Provider Name and Address Organization Details Last Updated DateTime 08/31/2024 61888.73 35326 g 154.94 cm 422119. 1458218 g 154.94 cm 86949.1 791098 g 154.94 cm Not Available [facility] [employer] 17:33:33 Date Recorded Body weight Body height Provider Name and Address Organization Details Last Updated DateTime 09/01/2024 76721.791004 9 g 154.94 cm Not Available [facility] 09/01/2024 18:13:21 Date Recorded Body weight Body height Body weight Body height Body weight Body height Provider Name and Address Organization Details Last Updated DateTime 09/02/2024 72171.40 61655 g 154.94 cm 825765. 3857801 g 154.94 cm 81772.2 077803 g 154.94 cm Not Available [facility] 18:33:20 Date Recorded Body weight Body height Body weight Body height Body weight Body height Body weight Body height Body weight Body height Body weight Body height Provider Name and Address Organization Details Last Updated DateTime 5 62626.4 115693 g 154.94 cm 911618. 4729123 g 154.94 cm 820561. 7681773 g 154.94 cm 063801. 3641462 g 154.94 cm 019564. 4208220 g 154.94 cm 390116. 8683088 g 154.94 cm Not Available [facility] 16:38:21 Date Recorded Body weight Body height Body weight Body height Body weight Body height Provider Name and Address Organization Details Last Updated DateTime 09/05/2024 67529.09 71528 g 154.94 cm 16699.2 671201 g 154.94 cm 98487.4 987333 g 154.94 cm Not Available [facility] 16:53:20 Date Recorded Body weight Body height Body weight Body height Provider Name and Address Organization Details Last Updated DateTime 09/06/2024 65944.936 5921 g 154.94 cm 56523.041 4314 g 154.94 cm Not Available [facility] 09/06/2024 15:53:25 Date Recorded Body weight Body height Body weight Body height Body weight Body height Body weight Body height Provider Name and Address Organization Details Last Updated DateTime 5 42044.1 468709 g 154.94 cm 26044.8 130143 g 154.94 cm 98040.1 902019 g 154.94 cm 22579.5 563539 g 154.94 cm Not Available [facility] 18:43:18 Date Recorded Body weight Body height Body weight Body height Body weight Body height Body weight Body height Provider Name and Address Organization Details Last Updated DateTime 5 57235.7 325989 g 154.94 cm 227866. 0217779 g 154.94 cm 567550. 4113251 g 154.94 cm 083685. 1436150 g 154.94 cm Not Available [facility] 19:03:41 Date Recorded Body weight Body height Body weight Body height Provider Name and Address Organization Details Last Updated DateTime 09/10/2024 57123.690 2477 g 154.94 cm 463660.59 15299 g 154.94 cm Not Available [facility] 09/10/2024 16:53:21 Date Recorded Body weight Body height Provider Name and Address Organization Details Last Updated DateTime 09/11/2024 994832.18976 01 g 154.94 cm Not Available [facility] 09/11/2024 18:58:22 Date Recorded Body weight Body height Body weight Body height Body weight Body height Provider Name and Address Organization Details Last Updated DateTime 09/12/2024 74265.43 585 g 154.94 cm 192458. 3087328 g 154.94 cm 543964. 1962354 g 154.94 cm Not Available [facility] 18:48:22 Date Recorded Body weight Body height Body weight Body height Provider Name and Address Organization Details Last Updated DateTime 09/13/2024 30009.336 8743 g 154.94 cm 539317.44 50588 g 154.94 cm Not Available [facility] 09/13/2024 16:43:21 Date Recorded Body weight Body height Provider Name and Address Organization Details Last Updated DateTime 09/14/2024 31374.247380 1 g 154.94 cm Not Available [facility] 09/14/2024 17:08:23 Date Recorded Body weight Body height Body weight Body height Body weight Body height Body weight Body height Provider Name and Address Organization Details Last Updated DateTime 5 57558.0 864278 g 154.94 cm 539272. 7025501 g 154.94 cm 56716.5 984455 g 154.94 cm 01510.5 880368 g 154.94 cm Not Available [facility] 5 17:28:21 Date Recorded Body weight Body height Body weight Body height Provider Name and Address Organization Details Last Updated DateTime 09/16/2024 14149.208 5806 g 154.94 cm 58368.919 0013 g 154.94 cm Not Available [facility] 09/16/2024 14:48:19 Date Recorded Body weight Body height Body weight Body height Body weight Body height Body weight Body height Provider Name and Address Organization Details Last Updated DateTime 5 84908.6 417903 g 154.94 cm 316375. 151913 g 154.94 cm 87083.9 922365 g 154.94 cm 442446. 4164527 g 154.94 cm Not Available [facility] [employer] 18:08:24 Date Recorded Body weight Body height Provider Name and Address Organization Details Last Updated DateTime 09/18/2024 014407.74422 39 g 154.94 cm Not Available [facility] [employer] 09/18/2024 18:53:25 Date Recorded Body weight Body height Body weight Body height Body weight Body height Provider Name and Address Organization Details Last Updated DateTime 09/19/2024 70629.66 86095 g 154.94 cm 84481.4 898534 g 154.94 cm 226881. 9345595 g 154.94 cm Not Available [facility] [employer] [facility] [employer] 18:18:21 Date Recorded Body weight Body height Provider Name and Address Organization Details Last Updated DateTime 09/20/2024 87478.897614 2 g 154.94 cm Not Available [facility] [employer] 09/20/2024 07:53:33 Date Recorded Body weight Body height Provider Name and Address Organization Details Last Updated DateTime 09/21/2024 785707.99029 32 g 154.94 cm Not Available [facility] [employer] 09/21/2024 17:38:19 Date Recorded Body weight Body height Body weight Body height Body weight Body height Provider Name and Address Organization Details Last Updated DateTime 09/22/2024 65628.86 60382 g 154.94 cm 37766.8 886074 g 154.94 cm 466814. 4096093 g 154.94 cm Not Available [facility] 10:03:50 Date Recorded Body weight Body height Provider Name and Address Organization Details Last Updated DateTime 09/23/2024 525899.57046 84 g 154.94 cm Not Available [facility] 09/23/2024 17:28:19 Date Recorded Body weight Body height Provider Name and Address Organization Details Last Updated DateTime 09/24/2024 72924.605527 7 g 154.94 cm Not Available [facility] 09/24/2024 06:58:31 Date Recorded Body weight Body height Body weight Body height Body weight Body height Provider Name and Address Organization Details Last Updated DateTime 09/25/2024 13275.65 20953 g 154.94 cm 36610.2 67406 g 154.94 cm 39000.7 802407 g 154.94 cm Not Available [facility] 17:18:24 Date Recorded Body weight Body height Provider Name and Address Organization Details Last Updated DateTime 09/26/2024 26305.530165 1 g 154.94 cm Not Available [facility] 09/26/2024 06:53:26 Date Recorded Body height Body mass index (BMI) Body weight Provider Name and Address Organization Details Last Updated DateTime 09/26/2024 154.94 cm 38.5 kg/m2 57496.84 g Telly Bird MD [address] [place] [address],[address] [place], [address], [facility] - [facility] 09/29/2024 14:08:05 Date Recorded Body weight Body height Provider Name and Address Organization Details Last Updated DateTime 09/27/2024 44971.336735 5 g 154.94 cm Not Available [facility] 09/27/2024 08:13:31 Date Recorded Body weight Body height Provider Name and Address Organization Details Last Updated DateTime 09/30/2024 47463.342002 3 g 154.94 cm Not Available [facility] 09/30/2024 06:53:41 Date Recorded Body weight Body height Body weight Body height Body weight Body height Body weight Body height Body weight Body height Provider Name and Address Organization Details Last Updated DateTime 70540.2 269078 g 154.94 cm 180958. 7217231 g 154.94 cm 190258. 8695914 g 154.94 cm 479185. 4366242 g 154.94 cm 339136. 3540680 g 154.94 cm Not Available [facility] 15:43:26 Date Recorded Body weight Body height Provider Name and Address Organization Details Last Updated DateTime 10/03/2024 491266.24612 67 g 154.94 cm Not Available [facility] 10/03/2024 15:40:29 Date Recorded Body weight Body height Provider Name and Address Organization Details Last Updated DateTime 10/04/2024 93180.317053 2 g 154.94 cm Not Available [facility] 10/04/2024 08:23:43 Date Recorded Body weight Body height Body weight Body height Provider Name and Address Organization Details Last Updated DateTime 10/06/2024 72921.777 4962 g 154.94 cm 13234.765 769 g 154.94 cm Not Available [facility] 10/06/2024 06:53:35 Date Recorded Body weight Body height Provider Name and Address Organization Details Last Updated DateTime 10/08/2024 49331.661628 6 g 154.94 cm Not Available [facility] 10/08/2024 06:53:28 Date Recorded Body weight Body height Body weight Body height Provider Name and Address Organization Details Last Updated DateTime 10/09/2024 30701.561 954 g 154.94 cm 194996.12 30158 g 154.94 cm Not Available [facility] 10/09/2024 18:13:23 Date Recorded Body weight Body height Body weight Body height Body weight Body height Body weight Body height Body weight Body height Provider Name and Address Organization Details Last Updated DateTime 10364.1 494416 g 154.94 cm 84024.3 754926 g 154.94 cm 262259. 5355485 g 154.94 cm 509529. 0747016 g 154.94 cm 487712. 5428284 g 154.94 cm Not Available [facility] [employer] 17:03:26 Date Recorded Body weight Body height Provider Name and Address Organization Details Last Updated DateTime 10/13/2024 41570.000014 g 154.94 cm Not Available [facility] [employer] 10/13/2024 07:13:30 Date Recorded Body weight Body height Provider Name and Address Organization Details Last Updated DateTime 10/14/2024 51571.389688 1 g 154.94 cm Not Available [facility] 10/14/2024 18:53:22 Date Recorded Body weight Body height Provider Name and Address Organization Details Last Updated DateTime 10/15/2024 99196.677998 2 g 154.94 cm Not Available [facility] 10/15/2024 17:53:25 Date Recorded Body weight Body height Provider Name and Address Organization Details Last Updated DateTime 10/17/2024 00074.430831 5 g 154.94 cm Not Available [facility] 10/17/2024 06:58:22 Date Recorded Body weight Body height Body weight Body height Body weight Body height Provider Name and Address Organization Details Last Updated DateTime 10/18/2024 48550.05 80992 g 154.94 cm 19069.6 675485 g 154.94 cm 202605. 5449336 g 154.94 cm Not Available [facility] [employer] 12:03:26 Date Recorded Body weight Body height Provider Name and Address Organization Details Last Updated DateTime 10/19/2024 79938.404476 g 154.94 cm Not Available [facility] 10/19/2024 13:08:22 Date Recorded Body weight Body height Provider Name and Address Organization Details Last Updated DateTime 10/20/2024 53663.285844 6 g 154.94 cm Not Available [facility] 10/20/2024 18:28:20 Date Recorded Body weight Body height Body weight Body height Body weight Body height Body weight Body height Body weight Body height Body weight Body height Provider Name and Address Organization Details Last Updated DateTime 44092.7 046654 g 154.94 cm 53311.7 791024 g 154.94 cm 49078.7 811633 g 154.94 cm 510232. 5712422 g 154.94 cm 958044. 8064593 g 154.94 cm 26487.0 910540 g 154.94 cm Not Available [facility] 5 18:43:23 Date Recorded Body weight Body height Body weight Body height Provider Name and Address Organization Details Last Updated DateTime 10/24/2024 901856.16 93195 g 154.94 cm 528959.49 91400 g 154.94 cm Not Available [facility] 10/24/2024 18:18:22 Date Recorded Body weight Body height Body weight Body height Body weight Body height Provider Name and Address Organization Details Last Updated DateTime 10/30/2024 65997.55 93634 g 154.94 cm 82953.6 936642 g 154.94 cm 28488.9 885919 g 154.94 cm Not Available [facility] 08:03:28 Date Recorded Body weight Body height Body height Body weight Body height Body weight Body height Body height Body weight Body height Systolic blood pressure Diastolic blood pressure Systolic blood pressure Diastolic blood pressure Provider Name and Address Organization Details Last Updated DateTime 50425.6 348647 g 154.94 cm 154.94 cm 27807.9 589401 g 154.94 cm 45134.9 64781 g 154.94 cm 154.94 cm 324398. 1364841 g 154.94 cm 123 mm[Hg] 87 mm[Hg] 125 mm[Hg] 88 mm[Hg] Not Available [facility] 15:10:16 Date Recorded Body weight Body height Body weight Body height Provider Name and Address Organization Details Last Updated DateTime 11/01/2024 58779.950 509 g 154.94 cm 23416.103 7413 g 154.94 cm Not Available [facility] 11/01/2024 06:38:21 Date Recorded Body weight Body height Body weight Body height Provider Name and Address Organization Details Last Updated DateTime 11/02/2024 69910.828 0789 g 154.94 cm 323467.40 23165 g 154.94 cm Not Available [facility] 11/02/2024 17:23:21 Date Recorded Body weight Body height Body weight Body height Provider Name and Address Organization Details Last Updated DateTime 11/04/2024 83833.732 7771 g 154.94 cm 25721.897 7366 g 154.94 cm Not Available [facility] 11/04/2024 08:03:23 Date Recorded Body weight Body height Provider Name and Address Organization Details Last Updated DateTime 11/05/2024 38820.487736 g 154.94 cm Not Available [facility] 11/05/2024 06:28:22 Date Recorded Body weight Body height Body weight Body height Body weight Body height Body weight Body height Provider Name and Address Organization Details Last Updated DateTime 5 87180.9 321249 g 154.94 cm 26574.5 444882 g 154.94 cm 385143. 9983860 g 154.94 cm 874844. 7386999 g 154.94 cm Not Available [facility] 16:08:18 Date Recorded Body weight Body height Provider Name and Address Organization Details Last Updated DateTime 11/07/2024 841715.48111 62 g 154.94 cm Not Available [facility] 11/07/2024 17:08:15 Date Recorded Body weight Body height Provider Name and Address Organization Details Last Updated DateTime 11/08/2024 792293.04240 38 g 154.94 cm Not Available [facility] 11/08/2024 16:53:15 Date Recorded Body weight Body height Heart rate Body height Heart rate Body height Systolic blood pressure Diastolic blood pressure Systolic blood pressure Diastolic blood pressure Provider Name and Address Organization Details Last Updated DateTime 5 91383.4 242697 g 154.94 cm 102 /min 154.94 cm 94 /min 154.94 cm 153 mm[Hg] 100 mm[Hg] 146 mm[Hg] 82 mm[Hg] Not Available [facility] 17:53:15 Date Recorded Body weight Body height Body weight Body height Provider Name and Address Organization Details Last Updated DateTime 11/10/2024 56852.676 3308 g 154.94 cm 457378.15 2547 g 154.94 cm Not Available [facility] Production 11/10/2024 12:34:35 Date Recorded Body weight Body height Body weight Body height Body weight Body height Body weight Body height Provider Name and Address Organization Details Last Updated DateTime 5 74879.5 150728 g 154.94 cm 292636. 0968682 g 154.94 cm 327522. 5250052 g 154.94 cm 59431.1 44129 g 154.94 cm Not Available [facility] [employer] 14:33:15 Date Recorded Body weight Body height Body weight Body height Body weight Body height Body weight Body height Heart rate Body height Heart rate Body height Systolic blood pressure Diastolic blood pressure Systolic blood pressure Diastolic blood pressure Provider Name and Address Organization Details Last Updated DateTime 19849.1 354093 g 154.94 cm 94061.1 955671 g 154.94 cm 780189. 4804979 g 154.94 cm 97816.0 247846 g 154.94 cm 102 /min 154.94 cm 87 /min 154.94 cm 145 mm[Hg] 65 mm[Hg] 111 mm[Hg] 74 mm[Hg] Not Available [facility] [employer] 17:48:17 Date Recorded Body weight Body height Body weight Body height Provider Name and Address Organization Details Last Updated DateTime 11/13/2024 22897.711 5124 g 154.94 cm 49633.572 197 g 154.94 cm Not Available [facility] [facility] [employer] 11/13/2024 15:53:17 Date Recorded Body weight Body height Body weight Body height Body weight Body height Provider Name and Address Organization Details Last Updated DateTime 11/16/2024 84564.45 84322 g 154.94 cm 67801.6 756032 g 154.94 cm 090889. 4763431 g 154.94 cm Not Available [facility] [employer] 17:03:14 Date Recorded Body weight Body height Provider Name and Address Organization Details Last Updated DateTime 11/17/2024 959192.49850 41 g 154.94 cm Not Available [facility] [employer] 11/17/2024 11:48:15 Date Recorded Body weight Body height Body weight Body height Provider Name and Address Organization Details Last Updated DateTime 11/18/2024 55686.837 6164 g 154.94 cm 47152.478 3794 g 154.94 cm Not Available [facility] [employer] 11/18/2024 07:58:14 Date Recorded Body weight Body height Body weight Body height Body weight Body height Provider Name and Address Organization Details Last Updated DateTime 11/19/2024 333710.6 238585 g 154.94 cm 47650.5 057248 g 154.94 cm 02435.5 812294 g 154.94 cm Not Available [facility] 15:53:18 Date Recorded Body weight Body height Body weight Body height Body weight Body height Body weight Body height Provider Name and Address Organization Details Last Updated DateTime 676652. 0776789 g 154.94 cm 39830.6 841261 g 154.94 cm 89005.2 468977 g 154.94 cm 946087. 7753204 g 154.94 cm Not Available [facility] 19:23:14 Date Recorded Body weight Body height Provider Name and Address Organization Details Last Updated DateTime 11/21/2024 18082.724526 8 g 154.94 cm Not Available [facility] 11/21/2024 16:38:16 Date Recorded Body weight Body height Body weight Body height Provider Name and Address Organization Details Last Updated DateTime 11/22/2024 30754.616 2106 g 154.94 cm 28492.466 6522 g 154.94 cm Not Available [facility] 11/22/2024 08:28:26 Date Recorded Body weight Body height Body weight Body height Provider Name and Address Organization Details Last Updated DateTime 11/23/2024 207946.94 80571 g 154.94 cm 72272.333 2004 g 154.94 cm Not Available [facility] 11/23/2024 18:48:15 Date Recorded Body weight Body height Body weight Body height Body weight Body height Provider Name and Address Organization Details Last Updated DateTime 11/24/2024 35518.57 74440 g 154.94 cm 167884. 8448533 g 154.94 cm 84589.8 529700 g 154.94 cm Not Available [facility] 19:48:13 Date Recorded Body weight Body height Body weight Body height Body weight Body height Body weight Body height Provider Name and Address Organization Details Last Updated DateTime 58427.8 443529 g 154.94 cm 65425.3 53498 g 154.94 cm 199852. 6568183 g 154.94 cm 28908.1 88627 g 154.94 cm Not Available [facility] 5 19:48:14 Date Recorded Body weight Body height Body weight Body height Body weight Body height Body weight Body height Provider Name and Address Organization Details Last Updated DateTime 5 28498.9 094511 g 154.94 cm 66400.0 783928 g 154.94 cm 225317. 1905590 g 154.94 cm 700473. 5307583 g 154.94 cm Not Available [facility] [employer] 5 18:08:14 Date Recorded Body weight Body height Provider Name and Address Organization Details Last Updated DateTime 11/27/2024 53354.621031 5 g 154.94 cm Not Available [facility] 11/27/2024 09:43:17 Date Recorded Body weight Body height Body weight Body height Body weight Body height Body weight Body height Provider Name and Address Organization Details Last Updated DateTime 5 60787.4 938166 g 154.94 cm 264138. 1500987 g 154.94 cm 81675.2 819609 g 154.94 cm 97519.6 75317 g 154.94 cm Not Available [facility] 5 19:59:02 Date Recorded Body weight Body height Body weight Body height Body weight Body height Body weight Body height Provider Name and Address Organization Details Last Updated DateTime 5 02936.5 806819 g 154.94 cm 60248.1 191585 g 154.94 cm 328146. 1212949 g 154.94 cm 13456.1 676898 g 154.94 cm Not Available [facility] 5 17:48:14 Date Recorded Body weight Body height Body weight Body height Provider Name and Address Organization Details Last Updated DateTime 11/30/2024 690802.18 74242 g 154.94 cm 13921.208 5806 g 154.94 cm Not Available [facility] 11/30/2024 19:43:15 Date Recorded Body weight Body height Body weight Body height Provider Name and Address Organization Details Last Updated DateTime 12/01/2024 19342.693 9216 g 154.94 cm 291872.87 62929 g 154.94 cm Not Available [facility] 12/01/2024 12:33:17 Date Recorded Body weight Body weight Body height Body weight Body weight Body height Provider Name and Address Organization Details Last Updated DateTime 12/02/2024 834969.8 324 g 949057. 6568191 g 154.94 cm 96357.4 4912 g 06394.5 220180 g 154.94 cm Not Available [employer] 19:53:14 Date Recorded Body weight Body weight Body height Body weight Body weight Provider Name and Address Organization Details Last Updated DateTime 12/03/2024 07710.58 552 g 20165.66 16724 g 154.94 cm 841825.6 284 g 279170.6 2112 g Not Available [facility] 12/03/2024 17:51:14 Date Recorded Body weight Body weight Body weight Provider Name and Address Organization Details Last Updated DateTime 12/04/2024 121885.9503 6 g 64253.7464 8 g 01406.4203 2 g Not Available [facility] 12/04/2024 20:00:32 Date Recorded Body weight Body weight Body weight Body weight Provider Name and Address Organization Details Last Updated DateTime 12/05/2024 666783.52 776 g 14858.115 68 g 30698.802 56 g 31491.371 52 g Not Available [facility] 12/05/2024 21:03:16 Date Recorded Body weight Provider Name an d Address Organization Details Last Updated DateTime 12/06/2024 28978.18477 g Not Available [facility] 12/06/2024 08:02:24 Date Recorded Body weight Provider Name an d Address Organization Details Last Updated DateTime 12/07/2024 48052.9144 g Not Available [facility] 12/07/2024 08:42:16 Social History None recorded. Functional Status None recorded. Mental Status None recorded. Family History Nothing Reported. Medical History Condition Response Liver Disease Y Gynecological HistoryNo gynecological history recorded. Obstetrics History GPAL:G 0 P 0 0 0 0 Past Encounters Encounter ID Performer Location Encounter Start Date Encounter Closed Date Diagnosis/Indication Diagnosis SNOMED-CT Code Diagnosis ICD10 Code Diagnosis Note [id number] Telly Bird MD [address] [address] 06/25/2024 17:46:42 06/28/2024 04:01:17 Obesity 463036214 E66.9 Non-alcoho lic fatty liver 484353623 K76.0 [id number] KAYLIE SORTO RDN [address] [address] 06/26/2024 09:57:51 07/01/2024 04:06:18 Obesity 721725473 E66.9 Dietary ma nagement surveillance 185665098 Z71.3 Abnormal weight gain 161 798794 R63.5 Non-alcoho lic fatty liver 021717673 K76.0 [id number] Telly Bird MD [address] [address] 09/29/2024 14:06:59 10/01/2024 04:05:32 Endocrine/metabolic screening 204192222 Z13.228 Z13.29 Z13.21 R53.83 Z13.1 Z13.220 Z13.6 Z13.0 E56.9 E53.9 E55.9 Z79.899 R79.9 Obesity 911080204 E66.9 Non-alcoho lic fatty liver 009285397 K76.0 Health Concerns Section Related Observation LastModified by Organization Detai ls LastModified Time None Recorded Concern Status LastModified by Organization Details LastModified Time None Recorded Advance Directives Directive None Recorded Payers Encounter Date Sequence Insurance Name Policy Number Policy Agarwal Covered Member ID Agarwal Member ID Guarantor Name 06/25/2024 [facility] Javon Greenedeidre [id number] Javon Javier 06/26/2024 [facility] Javon Herrera [id number] Javon Greenedeidre Notes Date Note Type Note Provider Name and Address Organization Details Recorded Time 4 text/htm l 39 yr old Female with class 3 Obesity, Fatty liver presents for evaluation.I have confirmed that the patient is physically located in the state of??MASynchronous telemedicine service rendered via a real-time interactive audio and video communications systemVITALSHeight: 5'1 Weight: 203.6Highest weight/BMI: 205 lbs, (INITIAL WAS INCORRECT)Baseline weight/BMI: 206.0 lbs, BMI 38.9Lowest adult weight/BMI: 140.0 lbs, BMI 26.4, 2008Last weight/BMI: 263.0 lbs, BMI 49.7Total weight loss (Highest - Last): -8.0 lbs / -3%Total weight loss (Baseline - Last): +57.0 lbs / +27.7%Last Blood Pressure: 118/77; Recorded on 06/23; DeviceAverage Blood pressure: 126/82; Range: 106-144/60-97; Dates: 04/30 - 06/23Last Pulse: 88; Recorded on 06/23; DeviceAverage Pulse: 82; Range: 59-106; Dates: 05/26 - 06/23WEIGHT HISTORYWeight gain coincided with: Injury/surgeryCurrent lifestyle factors: Sedentary, StressfulMotivation for weight loss: Recommended by a health professional, Improve health, To look or feel betterChallenges: Always regain lost weight, Feeling too restricted by a diet or exercise program, Hard to stick to a diet/program, Schedule/lifestylePrevious diets:Previous anti-obesity medications: NONEPrevious bariatric surgeries/procedures/devices : NONE DIETARY RECALL (Last 3 logs)--Food Logged on --Breakfast:Lunch:Dinner:Sna cks:Beverages:Soda:Juice:Alc ohol:Drinks with Sugar:Drinks with Artificial sweeteners:Other calorie-containing drinks:EATING BEHAVIORHistory of Eating Disorder: NoBinge Eating: SometimesExcessive appetite: NeverGrazing: SometimesCravings: SometimesTrigger for Overeating: Yes - Stress, Boredom, AnxietyPercentage of Daily Calories consumed after dinnertime: 0-25%Eating window:Biggest Meal of the day: Dinner, Afternoon snackWeekly Restaurant/Take out Meals:Dietary Strategies that are appealing: Intermittent fasting, Meal replacementsFood sensitivities/restrictions:F oods/Drinks consumed regularly: Sweets, Fast foodMiddle of the night eating:PHYSICAL ACTIVITYAverage daily steps: 2-5,000Activity Level: Sedentary (e.g., desk job, no structured activity)Type of Activity:Duration and frequency/week:TRACKER INFO: 05/16/2024 - Walking, 1 min, Moderate, 4 calories burned;SLEEPHours of sleep per night: 7OSA Dx: NoSnoring: Yes - ModerateWitnessed Apnea: NoTreating sleep apnea adequately:Daytime Sleepiness: YesMedications to help with sleep:STOP-BANG score: 3/7Insomnia: NoPSYCHDepression: NoAnxiety: No PAST MEDICAL/SURGICAL HISTORYWeight Classification: class 3 obesityConfirmed insulin resistance diagnosis: NoCancer types: NONEOther diagnoses: Fatty liverSurgeries: C/S x 1 SOCIAL 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 - [place] [facility] 06/28/2024 21:22:58 4 text/htm l Patient presents for weight management nutritional counseling HIPAA compliant synchronous video visitI have confirmed that the patient is physically located in the state of {{[facility]}} VitalsHeight: 5'1 Last weight/BMI: 202.6 lbs, BMI 38.3- 06/26/24Highest weight/BMI: 271.0 lbs, BMI 51.2, aseline weight/BMI: 206.0 lbs, BMI 38.9Lowest adult weight/BMI: 140.0 lbs, BMI 26.4, 2008Total weight loss (Highest - Last): -68.4 lbs / -25.2%Total weight loss (Baseline - Last): -3.4 lbs / -1.7%Last Blood Pressure: 128/84; Recorded on 06/25; DeviceAverage Blood pressure: 126/82; Range: 106-144/60-97; Dates: 04/30 - 06/25Last Pulse: 71; Recorded on 06/25; DeviceAverage Pulse: 81; Range: 59-106; Dates: 05/26 - 06/25 Weight HistoryWeight gain coincided with: Injury/surgeryCurrent lifestyle factors: Sedentary, StressfulMotivation for weight loss: Recommended by a health professional, Improve health, To look or feel betterChallenges: Always regain lost weight, Feeling too restricted by a diet or exercise program, Hard to stick to a diet/program, Schedule/lifestylePrevious diets:Previous anti-obesity medications: NONEPrevious bariatric surgeries/procedures/devices : NONE Medical History:Obesity,NAFLD, Hypertriglyceridemia, Labs:Triglycerides - 172LDL - 125 Confirm AOM and dose:Ozempic 0.25mgConfirm Frequency/Consistency:Plans on picking up prescription shortlyS/e:N/A Appetite:Doesn't get hungry until later in the day, but can get ravenous.Cravings:No significant cravings, but does get ravenous at times. 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 ALso taking classes two nights a week.Marital Status: MChildren: 1, 7 yoAlcohol: yesNicotine/Tobacco: No Lifestyle:Stress: ElevatedSleep: ~7 hoursCooking/restaurants/latesha d access: Most food is made at home, takeout 1-2 times a week. Nutrition IntakeDietary Restrictions/Allergies: NKFAFood Recall:B: coffee with milkS: If she has something she'll snack or sometimes she just won't have it. Noon - fruitL:S: ~4:30pm - snacks on processed carbs like popcorn or pretzels. May have cucumbers and banana.D: 6-6:30pm - Humbird tacos with sour cream and salasa (2).S:Elza: Coffee and water (64oz or more), sometimes a diet sodaAlcohol: Moderate intake - 1 drink per day. May be seltzer with vodka Physical Activity:Average daily steps: 2-5,000Activity Level: Sedentary (e.g., desk job, no structured activity)Has a gym membership.Not going to the gym much these days.Will walk to the bus stop with her son, other than that walking is limited. KAYLIE SORTO RDN [address] [facility],[address] [facility], [place], [address], [facility] [employer]. - [place] 06/26/2024 15:19:37 5 text/htm l I have confirmed that the patient is physically located in the state of??CTSynchronous telemedicine service rendered via a real-time interactive audio and video communications system.History of Present Illness: 39 y/o F C2 BMI 38.9 w NAFLD, Hypertriglyceridemia, presents for weight management. REC: Inject Ozempic 0.25mg once weekly for 4 weeks, then increase to 0.5mg once weekly and stay on 0.5mg Change in weight since last appointment: Highest/Baseline wt: Wt @ CHILANGO: 203 Current wt:204 Wt change: +1 Telly Bird MD [address] [facility],[address], [place], [address], [employer]. - [place] 09/29/2024 14:11:23 OBGyn Episode No OBEpisode recorded.
--- OUTSIDE RECORDS SUMMARY | 2024-12-08 05:56 | XMS_ITS ---
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
--- NOTE | 2024-12-08 06:12 | ED_ITS ---
HPI - General Adult General Chief complaint: General Medical Stated complaint: tightness in throat, SOB Time Seen by Provider: 12/08/24 05:44 Source: patient Mode of arrival: EMS Limitations: no limitations History of Present Illness ED Provider: HPI narrative: Patient no significant past medical history woke up in his sleep with throat pain and feeling swelling inside no rash no itching patient took 2 Benadryl prior to arrival no nasal congestion no cough no shortness of breath Related Data Previous Rx's ?Medication ?Instructions ?Recorded diphenhydramine HCl 25 mg capsule 50 mg (2 x 25 mg) PO TID PRN 12/08/24 (Benadryl) allergic reaction #20 caps prednisone 20 mg tablet 40 mg (2 x 20 mg) PO DAILY #10 tabs 12/08/24 Allergies Allergy/AdvReac Type Severity Reaction Status Date / Time amoxicillin Allergy Unknown rash Verified 12/08/24 05:58 doxycycline Allergy Unknown rash - ? Verified 12/08/24 05:58 Sulfa (Sulfonamide Allergy Unknown Rash Verified 12/08/24 05:58 Antibiotics) PCN s Allergy Unknown rash Uncoded 12/08/24 05:58 Review of Systems Review of Systems: Yes all other systems are reviewed and are negative PMFSH Social History Social History Advance Directives: No Advance Directives Information Provided: Yes Do you have a plan to hurt others: No Plan Physical Exam ED Vital Signs: Vital Signs - 24 hr 12/08/24 05:49 Temperature 97.6 F Pulse Rate 96 Respiratory Rate 18 Blood Pressure 133/86 Pulse Oximetry 98 Oxygen Delivery Method Room Air BMI result Body Mass Index 40.9 Appearance: Alert. Oriented X3. No acute distress. Eyes: no pallor or icterus ENT: Pharynx erythematous Oral Mucosa moist tympanic membrane intact no eryt mannie, slight swelling of the uvula Neck: Normal inspection. Neck supple. CVS: Normal heart rate and rhythm. Pulses normal. Respiratory: No respiratory distress. Equal air entry bilateral, no whe ezing/rales/rhonchi Abd: soft, not tender Skin: Skin warm and dry. Normal skin color. Normal skin turgor. Extremities: No lower extremity edema, no calf tenderness Neuro: Oriented X 3. Medical Decision Making Medical Decision Making [facility] Narrative: Patient nonspecific throat pain strep is negative COVID flu RSV negative no signs of allergic reaction noticed accept the uvula swelling patient advised to continue Benadryl for nonspecific allergic reaction Lab Data [facility] Lab Attestation statement: I reviewed the patient's lab results. Labs: Lab Results 12/08/24 Range/Units 06:02 Influenza Type A (PCR) NEGATIVE (Negative) Influenza Type B (PCR) NEGATIVE (Negative) RSV RNA Qual (PCR) NEGATIVE (Negative) SARS-CoV-2 RNA (RT-PCR) NEGATIVE (Negative) S. pyogenes GrpA WILD Negative (Negative) Discharge Plan Discharge Clinical Impression: Pain in throat Patient Disposition: Home, Self-Care Instructions: General Allergic Reaction (ED) Additional Instructions: Is possible you might have mild allergic reaction Slight swelling of the throat was noticed without any other rash Take Benadryl 2 tablets every 6 hours as needed Prednisone if throat swelling continues Report to the ER if gets worse/shortness of breath Prescriptions: New prednisone 20 mg tablet 40 mg PO DAILY Qty: 10 0RF diphenhydramine HCl [Benadryl] 25 mg capsule 50 mg PO TID PRN (Reason: allergic reaction) Qty: 20 0RF Print Language: Lebanese
[2024-12-08 06:18] LABS: IDNOW Serial# 55D5AD1C; Strep A Nucleic Acid Negative (Negative)
[2024-12-08 06:45] LABS: Influenza A PCR NEGATIVE (Negative); Influenza B PCR NEGATIVE (Negative); Resp Syncy Virus RNA Qual PCR NEGATIVE (Negative); SARS COV2 PCR INHOUSE NEGATIVE (Negative)
[2024-12-08] MEDS: predniSONE 20 MG TABLET 60 MG PO (06:54)
[2024-12-08 07:06] VITALS: BP 133/86; PULSE 96; RESP 18; TEMP 36.4; O2SAT 98
== END 2024-12-08 07:07 | disposition home or self-care (01) ==
PROVIDERS: Emergency Provider Internal Medicine
DX: J02.9 Acute pharyngitis, unspecified (principal); R06.02 Shortness of breath; Z03.818 Encounter for observation for suspected exposure to other biological agents ruled out
CPT/HCPCS: 0241U; 87651; 99282; 99283